=== PATIENT | female | born 1970 | race Caucasian/White ===

== ENCOUNTER 2018-10-20 00:02 | Emergency (ER) | payer BC ==
[~2018-10-20] VITALS: Ht 167.6 cm; Wt 53.0 kg
[~2018-10-20 00:02] MED LIST: DULO30CA2 PO; MULT-6 PO; OLAN2.5T10 PO; OMEG1CAP6 PO; OXCA300T19 PO; TRAZ50TA66 PO
--- NOTE | 2018-10-20 00:20 | NUR ---
FIRST CONTACT WITH PT. PT REPORTS SHE HAS BEEN DRINKING AND SHE FELL OFF OF HER DECK LEFT SHOULDER PAIN LEFT SHOULDER DEFROMITY NOTED PT DENIES ANY OTHER SYMPTOMS. PT'S AOX4. RESPS EVEN AND UNLABORED. BP/SPO2 MONITORS IN PLACE. CALL LIGHT WITHIN REACH. EDMD AT BEDSIDE TO EVALUATE AT THIS TIME.
[2018-10-20] MEDS ORDERED: KETOROLAC 30 MG/1 ML ONE (00:24)
--- NOTE | 2018-10-20 00:28 | NUR ---
PT IN XRAY.
[2018-10-20] MEDS ORDERED: KETOROLAC 30 MG/1 ML IM ONE (00:30)
--- NOTE | 2018-10-20 00:39 | NUR ---
PT MEDICATED PER EMAR FOR PAIN. PT TOLERATED WELL.
[2018-10-20] MEDS ORDERED: HYDROcodone/APAP 5/325 TABLET ONE (01:44)
[2018-10-20 01:46] VITALS: BP 100/67
--- NOTE | 2018-10-20 01:46 | NUR ---
PT MEDICATED PER EMAR FOR PAIN. PT TOLERATED WELL.
[2018-10-20] MEDS ORDERED: HYDROcodone/APAP 5/325 TABLET PO ONE (02:00)
--- NOTE | 2018-10-20 02:23 | NUR ---
PT GIVEN DC INSTRUCTIONS AND SCRIPTS. PT EDUCATED REGARDING DC MEDICATIONS. PT'S AOX4. RESPS EVEN AND UNLABORED. NO ACUTE DISTRESS AT DC. PT AMB TO DC WITH STEADY GAIT.
== END 2018-10-20 02:24 | disposition home or self-care (01) ==
LOC: ED 00:23
DX: S43.102A Unspecified dislocation of left acromioclavicular joint, initial encounter (principal); W01.0XXA Fall on same level from slipping, tripping and stumbling without subsequent striking against object, initial encounter; Y93.89 Activity, other specified; Y92.009 Unspecified place in unspecified non-institutional (private) residence as the place of occurrence of the external cause; Y99.8 Other external cause status
CPT/HCPCS: 70450; 72125; 73030; 96372; 99284; J1885